=== PATIENT | female | born 1945 | race Caucasian/White ===

== ENCOUNTER → 2018-07-01 11:08 | Outpatient (CLI) | payer MEDICARE, OTHER, SELFPAY ==
--- NOTE | 2018-07-01 | DI.MG.S_ITS ---
BILATERAL DIGITAL SCREENING MAMMOGRAM 3D/2D WITH CAD: 07/01/2018 CLINICAL: Routine screening. Family history of breast cancer. Comparison is made to exams dated: 06/30/2017 mammogram, 06/25/2016 mammogram, and 06/22/2015 mammogram - [facility]. There are scattered fibroglandular elements in both breasts. Current study was also evaluated with a Computer Aided Detection (CAD) system. No significant masses, calcifications, or other findings are seen in either breast. There has been no significant interval change. IMPRESSION: NEGATIVE There is no mammographic evidence of malignancy. A 1 year screening mammogram is recommended. This exam was interpreted at Station ID: [id number]. NOTE: For mammograms, a report in lay terms will be sent to the patient. Approximately 15% of breast malignancies will not be visualized mammographically. In the management of a palpable breast mass, a negative mammogram must not discourage biopsy of a clinically suspicious lesion. Electronically Signed By: Jimbo pate/sonam:07/03/2018 02:52:55 letter sent: Normal Exam ACR BI-RADS Category 1: Negative 3341F
== END ==
PROVIDERS: Visit Provider Internal Medicine
DX: Z12.31 Encounter for screening mammogram for malignant neoplasm of breast (principal); Z80.3 Family history of malignant neoplasm of breast
CPT/HCPCS: 77063; 77067

== ENCOUNTER → 2019-07-02 10:56 | Outpatient (CLI) | payer MEDICARE, OTHER, SELFPAY ==
--- NOTE | 2019-07-02 | DI.MG.S_ITS ---
BILATERAL DIGITAL SCREENING MAMMOGRAM 3D/2D WITH CAD: 07/02/2019 CLINICAL: Routine screening. Family history of breast cancer. Comparison is made to exams dated: 07/01/2018 mammogram - [facility], 06/30/2017 mammogram, and 06/25/2016 mammogram - [facility]. There are scattered fibroglandular elements in both breasts. Current study was also evaluated with a Computer Aided Detection (CAD) system. No significant masses, calcifications, or other findings are seen in either breast. There has been no significant interval change. IMPRESSION: NEGATIVE There is no mammographic evidence of malignancy. A 1 year screening mammogram is recommended. This exam was interpreted at Station ID: [id number]. NOTE: For mammograms, a report in lay terms will be sent to the patient. Approximately 15% of breast malignancies will not be visualized mammographically. In the management of a palpable breast mass, a negative mammogram must not discourage biopsy of a clinically suspicious lesion. Electronically Signed By: Kim bradshaw/sonam:07/02/2019 15:05:17 letter sent: Normal Exam ACR BI-RADS Category 1: Negative 3341F
== END ==
PROVIDERS: PCP Internal Medicine; Visit Provider Internal Medicine
DX: Z12.31 Encounter for screening mammogram for malignant neoplasm of breast (principal); Z80.3 Family history of malignant neoplasm of breast
CPT/HCPCS: 77063; 77067

== ENCOUNTER → 2020-07-04 11:47 | Outpatient (CLI) | payer MEDICARE, OTHER, SELFPAY ==
--- NOTE | 2020-07-04 12:17 | DI.MG.S_ITS ---
Patient Name: MARJ ROSAS date: 1945 Sex: F Attending Physician: Claudio Indications: Date: 07/04/2020 12:11 At the request of: ANTHONY BLANCAS Procedure: MM screening mammo BI BILATERAL DIGITAL SCREENING MAMMOGRAM 3D/2D WITH CAD: 07/04/2020 CLINICAL: Routine screening. Family history of breast cancer. Comparison is made to exams dated: 07/02/2019 mammogram, 07/01/2018 mammogram - [facility], and 06/30/2017 mammogram - [facility]. There are scattered fibroglandular elements in both breasts. Current study was also evaluated with a Computer Aided Detection (CAD) system. No significant masses, calcifications, or other findings are seen in either breast. There has been no significant interval change. IMPRESSION: NEGATIVE There is no mammographic evidence of malignancy. A 1 year screening mammogram is recommended. This exam was interpreted at Station ID: [id number]. NOTE: For mammograms, a report in lay terms will be sent to the patient. Approximately 15% of breast malignancies will not be visualized mammographically. In the management of a palpable breast mass, a negative mammogram must not discourage biopsy of a clinically suspicious lesion. Electronically Signed By: Uriel vasquez/sonam:07/04/2020 17:57:44 letter sent: Normal Exam ACR BI-RADS Category 1: Negative 3341F
== END ==
PROVIDERS: PCP Internal Medicine; Referring Provider Internal Medicine; Visit Provider Internal Medicine
DX: Z12.31 Encounter for screening mammogram for malignant neoplasm of breast (principal); Z80.3 Family history of malignant neoplasm of breast
CPT/HCPCS: 77063; 77067

== ENCOUNTER → 2021-05-11 11:35 | Outpatient (CLI) | payer MEDICARE, OTHER, SELFPAY ==
--- NOTE | 2021-05-11 11:40 | DI.MRI.S_ITS ---
PROCEDURE: MR LUMBAR SPINE WO CON INDICATIONS: Spondylolisthesis L4-5 TECHNIQUE: Noncontrast sagittal T1 spin echo and T2 fast echo, sagittal STIR, axial T1 and T2 fast spin echo through the lumbar spine. In cases with scoliosis, additional coronal T2 fast spin echo may be performed. COMPARISON: [facility], RG, XR L-SPINE 2-3V, 04/12/2021, 9:21. FINDINGS: Image quality: Excellent. Alignment and Curvature: Grade 1 anterolisthesis of L4 on L5 as before. Bone Marrow: Multilevel degenerative endplate sclerosis and spurring. Diffuse facet arthropathy. No acute fracture identified. Sclerotic degenerative changes seen at the anterior superior L5 endplate. Spinal Cord: Conus medullaris terminates at the L1-L2 level. Visualized cord demonstrates normal signal and size. Paraspinous Soft Tissues: There is lobulated T2 hyperintense homogeneous signal changes involving the posterior aspect of the right psoas muscle and into the right pelvis, not completely and included on the exam [id number]. On sagittal pulse sequences measures 6.4 cm in the oblique cephalocaudal dimension, and on axial images this measures 2.2 x 1.4 cm on image 31/6. Presumed bilateral T2 hyperintense renal cysts although technically indeterminate. T12-L1: Normal appearance. L1-L2: Normal appearance. L2-L3: No canal narrowing. Lateral recesses appear grossly patent. No left foraminal stenosis. Mild right foraminal narrowing. L3-L4: No high-grade canal narrowing. Partial effacement of both lateral recesses with bilaterally symmetric appearance. No foraminal stenosis. L4-L5: Moderate canal narrowing. Near complete effacement of both lateral recesses with bilaterally symmetric appearance. Mild left foraminal stenosis. Mild to moderate right foraminal narrowing. L5-S1: No canal stenosis. Lateral recesses appear grossly patent. No right foraminal stenosis. Moderate left foraminal stenosis with slight nerve root compression in the cephalocaudal dimension seen on image 13/4. IMPRESSION: Moderate left foraminal stenosis at L5-S1 as above. Moderate L4-L5 canal narrowing. Grade 1 anterolisthesis of L4 on L5. Incidentally noted lobulated large T2 hyperintense signal changes involving the right posterior aspect of the psoas muscle extending into the right pelvis. Unclear if this represents large cystic lesion/s versus T2 hyperintense solid mass. This is not entirely included on the examination. Recommend further evaluation with dedicated contrast enhanced pelvis MRI. Dictated by: Jimmie Wolf M.D. on 05/14/2021 at 10:04 Approved by: Jimmie Wolf M.D. on 05/14/2021 at 10:17
== END ==
PROVIDERS: PCP Internal Medicine; Referring Provider Physical Medicine & Rehabilitation; Visit Provider Physical Medicine & Rehabilitation
DX: M43.16 Spondylolisthesis, lumbar region (principal); M48.061 Spinal stenosis, lumbar region without neurogenic claudication; M48.07 Spinal stenosis, lumbosacral region
CPT/HCPCS: 72148

== ENCOUNTER → 2021-05-16 15:28 | Outpatient (CLI) | payer MEDICARE, OTHER, SELFPAY ==
--- NOTE | 2021-05-16 15:32 | DI.MRI.S_ITS ---
PROCEDURE: MR PELIS WO/W CON INDICATIONS: PSAOS MASS FOLLOW UP FROM LUMBAR MRI TECHNIQUE: Noncontrast coronal T1 spin echo and STIR, sagittal T1 spin echo with fat saturation and STIR, axial T1 spin echo and T2 fast spin echo with fat saturation. After the administration of contrast, axial/sagittal/coronal T1 spin echo with fat saturation through the pelvis [facility], RG, XR L-SPINE 2-3V, 04/12/2021, 9:21. eenCOMPARISON: [facility], MR, MR LUMBAR SPINE WO CON, 05/11/2021, 11:52. FINDINGS: Image quality: Excellent. Bones: Patient is status post right total hip arthroplasty with significant susceptibility obscuring evaluation of right hip. Moderate to severe left hip joint osteoarthritic changes are seen with near complete loss of joint space, extensive subchondral sclerosis and edema and subchondral cyst formation. Prominent lateral and inferior marginal osteophyte formation is also seen. No evidence of avascular necrosis of femoral head. No suspicious intraosseous lesion. No abnormal intraosseous enhancement. Soft tissues: As seen on previous lumbar spine MRI, a elongated and lobulated fairly homogeneously T2 hyperintense and T1 hypointense signal structure involving posterior aspect of right psoas muscle extending to right pelvis and anterior aspect of right hip joint. Thin internal septation is seen. This structure measures up to 14 cm in craniocaudal dimension series 5, image 13, 4 cm in largest transverse dimension series 12, image 14, and 3.7 cm in largest AP dimension series 12, image 22. No gross contrast enhancement within this structure is seen. The scanned muscles demonstrate normal overall bulk and internal signal. No area of abnormal contrast enhancement is noted. IMPRESSION: 1. Finding most likely represent large ganglion cyst deep to the right psoas muscle extending along anterior aspect of right hemipelvis and right hip and possibly communicating with right hip joint measures up to 4 x 3.7 x 14 cm in largest transverse, AP and craniocaudal dimensions. No evidence of internal contrast enhancement. 2. No definite muscle involvement is seen. No evidence of abnormal intramuscular enhancement. 3. Prior right hip arthroplasty. Severe left hip joint osteoarthritis. No fracture or dislocation. No suspicious intraosseous lesion or abnormal intraosseous enhancement. Dictated by: Lukas Cobb M.D. on 05/16/2021 at 17:02 Approved by: Lukas Cobb M.D. on 05/16/2021 at 17:10
== END ==
PROVIDERS: PCP Internal Medicine; Referring Provider Physical Medicine & Rehabilitation; Visit Provider Physical Medicine & Rehabilitation
DX: M62.89 Other specified disorders of muscle (principal); M47.816 Spondylosis without myelopathy or radiculopathy, lumbar region; M16.12 Unilateral primary osteoarthritis, left hip; Z96.641 Presence of right artificial hip joint
CPT/HCPCS: 72197; A9579

== ENCOUNTER 2021-05-29 09:28 | Outpatient (CLI) | payer MEDICARE, OTHER, SELFPAY ==
[2021-05-29] VITALS (9 sets, daily range): BP systolic 92–133; BP diastolic 46–60; PULSE 71–76; RESP 12–25; TEMP 36.9; O2SAT 95–100
--- NOTE | 2021-05-29 09:33 | DI.RAD.S_ITS ---
PROCEDURE: PAIN L/S FACET INJ/BLK 1ST BLAYNE COMPARISON: None. INDICATIONS: SPONDYLOSIS FINDINGS: Access needles demonstrated at the bilateral L4-L5 and L5-S1 facet joints. IMPRESSION: Access needles at bilateral L4-L5 and L5-S1 facet joints. Dictated by: Zoe Reis MD, PhD on 06/04/2021 at 9:25 Approved by: Zoe Reis MD, PhD on 06/04/2021 at 9:26
[2021-05-29] MEDS: fentaNYL 100 MCG/2 ML INJ 50 MCG IV (11:05)
[2021-05-29] MEDS: MIDAZOLAM 5 MG/5 ML VIAL IV (11:05)
[2021-05-29] MEDS: BETAMETHASONE 30 MG/5 ML MDV 12 MG INJ (11:05)
[2021-05-29] MEDS: IOPAMIDOL 15 ML VIAL 3 ML INJ (11:11)
[2021-05-29] MEDS: LIDOCAINE 1% 20 ML 10 ML INJ (11:12)
[2021-05-29] MEDS: BUPIVACAINE 0.5% (PF) VIAL 2 ML INJ (11:13)
--- NOTE | 2021-05-29 11:19 | P.PCN_ITS ---
Date/Time/Diagnoses Date of procedure: 05/29/21 Time of procedure: 11:19 Pre-procedure diagnosis: 1. FACET ARTHROPATHY 2. AXIAL LBP 3. MULTILEVEL DDD Post-procedure diagnosis: same Procedure Notes Procedure: 1. FLUOROSCOPICALLY GUIDED CONTRAST CONTROLLED FACET JOINT INJECTIONS BILATERAL L4/5, L5/S1 Indications: Annabelle is referred by Dr. Snyder for treatment of Axial LBP Physician: Mykel Monzon Total Fluoroscopy time (seconds): 8 Total sedation minutes: 10 Complications: none Procedure in detail & Post-procedure care: FINDINGS Multilevel Facet Arthropathy with Clinically significant axial LBP DESCRIPTION OF PROCEDURE Fluoroscopically guided, contrast-controlled bilateral L4/5, L5/S1 facet joint injections. Following review of allergy and review of potential side effects and complications, including, but not necessarily limited to, infection, allergic reaction, local tissue breakdown, stroke, temporary or permanent nerve injury, paralysis, and possible , the patient indicated that the patient understood and agreed to proceed. An informed consent document was signed by the patient, witnessed by a nurse, and placed in the patient's chart. Additionally, other treatment options including medications, modalities, and physical therapy were reviewed with the patient. After review of previous anaesthesic history and IV conscious sedation the patient was deemed safe to proceed with today?s procedure with IV conscious sedation as ASA class II designation. Safety time-out was performed to confirm patient ID, procedure to be performed and site of procedure. IV sedation was accomplished with a combination of 4mg of Versed and 50mcg of Fentanyl was administered by the RN after DO order, titrated to patient comfort during the course of the procedure while the patient remained responsive to all verbal commands In the prone position, following sterile prep and drape of the lumbar region, the posterior aspect of the L4/5, L5/S1 facet joints were identified fluoroscopically. The skin was anesthetized via a 25-gauge 1.5inch needle with 1% lidocaine solution into the corresponding facet joints. At this point, a 22- gauge 3.5-inch spinal needle was atraumatically introduced and advanced under fluoroscopic guidance into the corresponding facet joints. Following negative aspiration, injections of approximately 0.2cc of Isovue 200 confirmed intera rticular placement without vascular uptake. The identical procedure was then performed at the L4/5, L5/S1 facet joints on the left. Radiological data, including multiple fluoroscopic views of the lumbosacral spine, reveal a spinal needle at the L4/5, L5/S1 facet joints bilaterally. Subsequent views show flow of contrast material both superiorly and inferiorly within the joint space without vascular or intrathecal uptake. At this point, a total of 0.5cc including a mixture of 0.25cc Marcaine and 0.25cc betamethasone was injected without complication into each of the corresponding facet joints. The patient tolerated the procedure well without signs or symptoms of complications prior to transfer to the recovery area continued monitoring without incident. The patient was then transferred to the recovery area where they were observed for an appropriate period of time after the injection. The patient reported a VAS score of 7 prior to the procedure and a post- procedure VAS of 0. POST OP INSTRUCTIONS The patient was provided a Pain Log to continue to record their response to the target-specific procedure prior to follow-up visit with their referring physician. Additionally, specific post-injection care instructions and a contact number to our office were provided if concerns arise regarding possible complications associated with the procedure are suspected.
== END 2021-05-29 11:43 | disposition home or self-care (01) ==
LOC: RAD 09:31
PROVIDERS: PCP Internal Medicine; Referring Provider Physical Medicine & Rehabilitation; Visit Provider Physical Medicine & Rehabilitation
DX: M47.816 Spondylosis without myelopathy or radiculopathy, lumbar region (principal); M47.817 Spondylosis without myelopathy or radiculopathy, lumbosacral region; M51.36 Other intervertebral disc degeneration, lumbar region; M51.37 Other intervertebral disc degeneration, lumbosacral region; M54.5 Low back pain
CPT/HCPCS: 64493; 64494; 99152; J0702; J2250; J3010

== ENCOUNTER → 2021-06-27 11:52 | Outpatient (CLI) | payer MEDICARE, OTHER, SELFPAY ==
[2021-06-27 16:01] LABS: COVID19 -Nasal RAPID Negative (Negative)
== END ==
PROVIDERS: PCP Internal Medicine; Visit Provider Physical Medicine & Rehabilitation
DX: Z20.822 Contact with and (suspected) exposure to COVID-19 (principal); M47.816 Spondylosis without myelopathy or radiculopathy, lumbar region; M43.16 Spondylolisthesis, lumbar region; M62.89 Other specified disorders of muscle
CPT/HCPCS: 87635; 99213; C9803

== ENCOUNTER 2021-06-28 12:20 | Outpatient (CLI) | payer MEDICARE, OTHER, SELFPAY ==
[2021-06-28] VITALS (8 sets, daily range): BP systolic 108–134; BP diastolic 55–62; PULSE 67–73; RESP 10–18; TEMP 36.6; O2SAT 98–100
--- NOTE | 2021-06-28 12:21 | DI.RAD.S_ITS ---
PROCEDURE: PAIN L/S FACET INJ/BLK 1ST BLAYNE COMPARISON: [facility], , PAIN L/S FACET INJ/BLK 1ST BLAYNE, 05/29/2021, 11:09. INDICATIONS: SPONDYLOSIS FINDINGS: Fluoroscopic spot filming was performed to verify placement of spinal needles on both sides at the L4, L5, and S1 levels, as labeled on the films. Appropriate location of the needle tips was confirmed by injection of iodinated contrast. IMPRESSION: Intraprocedural examination within normal limits. Dictated by: Wang Lopez M.D. on 06/28/2021 at 13:40 Approved by: Wang Lopez M.D. on 06/28/2021 at 13:43
[2021-06-28] MEDS: MIDAZOLAM 5 MG/5 ML VIAL IV (13:20)
[2021-06-28] MEDS: fentaNYL 100 MCG/2 ML INJ 50 MCG IV (13:20)
[2021-06-28] MEDS: LIDOCAINE 1% 20 ML 10 ML INJ (13:25)
[2021-06-28] MEDS: BUPIVACAINE 0.5% (PF) VIAL 5 ML INJ (13:25)
[2021-06-28] MEDS: IOPAMIDOL 15 ML VIAL 3 ML INJ (13:25)
--- NOTE | 2021-06-28 13:36 | P.PCN_ITS ---
Date/Time/Diagnoses Date of procedure: 06/28/21 Time of procedure: 13:36 Pre-procedure diagnosis: 1. FACET ARTHROPATHY Post-procedure diagnosis: same Procedure Notes Procedure: 1. BILATERAL- L4, L5 and S1 DIAGNOSTIC MB BLOCKS with LA Anesthetic Indications: Annabelle is referred by Dr. Snyder for treatment of Bilateral Axial LBP. Physician: Mykel Monzon Total Fluoroscopy time (seconds): 8 Total sedation minutes: 13 Complications: none Procedure in detail & Post-procedure care: DESCRIPTION OF PROCEDURE Fluoroscopically guided, contrast-controlled bilateral L4, L5 and S1 medial branch blocks with 0.5cc of 0.5% Marcaine. Following review of allergy and review of potential side effects and complications, including, but not necessarily limited to, infection, allergic reaction, local tissue breakdown, nerve injury, paralysis, stroke and possible , the patient indicated that the patient understood and agreed to proceed. An informed consent document was signed by the patient, witnessed by a nurse, and placed in the patient's chart. After review of previous anaesthesic history and IV conscious sedation the patient was deemed safe to proceed with today's procedure with IV conscious sedation as ASA class II designation. Safety time-out was performed to confirm patient ID, procedure to be performed and site of procedure. IV sedation was accomplished with a combination of 2mg of Versed and 50mcg of Fentanyl was administered by the RN after DO order, titrated to patient comfort during the course of the procedure while the patient remained responsive to all verbal commands In the prone position, following sterile prep and drape of the lumbar region, the right L4, L5 and S1 anatomical location of the medial branch of the dorsal ramus was identified fluoroscopically. Subsequently an anesthetic skin wheal using 1% lidocaine solution was initiated at each of the anatomical spots. Subsequently then a 22-gauge 3.5-inch spinal needle was atraumatically introduced and advanced under fluoroscopic guidance at each of the corresponding sites at the right L4, L5 and S1 MB. After negative aspiration, 0.2cc of Isovue 200 was injected, confirming placement without vascular or intrathecal uptake. Subsequently then 0.5cc of 0.5% Marcaine solution was injected at each of the corresponding sites at the right L4, L5 and S1 medial branch locations. The identical procedure was replicated on the left. The patient tolerated the procedure well without signs or symptoms of complications prior to transfer to the recovery area continued monitoring without incident. Post-procedure, the patient was monitored initiating provocative activities to measure the amount of relief from block of the facetogenic pain. The patient reported a VAS of 7 prior to the procedure and a post-procedure VAS of 1. It has been a pleasure to assist in the diagnostic and therapeutic care of your patient. POST OP INSTRUCTIONS The patient was provided with a Pain Log to complete over the next several hours and subsequent days prior to the patient's follow up with the ordering physician. 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 The patient is aware, was provided, once again, with a Pain Log and will follow up with the referring physician for review and clinical correlation
== END 2021-06-28 14:00 | disposition home or self-care (01) ==
LOC: RAD 12:21
PROVIDERS: PCP Internal Medicine; Referring Provider Physical Medicine & Rehabilitation; Visit Provider Physical Medicine & Rehabilitation
DX: M47.816 Spondylosis without myelopathy or radiculopathy, lumbar region (principal); M47.817 Spondylosis without myelopathy or radiculopathy, lumbosacral region
CPT/HCPCS: 64493; 64494; 99152; J2250; J3010

== ENCOUNTER → 2021-07-06 09:29 | Outpatient (CLI) | payer MEDICARE, OTHER, SELFPAY ==
--- NOTE | 2021-07-06 09:31 | DI.RAD.S_ITS ---
PROCEDURE: XR DEXA AXIAL SKELETON INDICATIONS: Routine screening COMPARISON: None. FINDINGS: This blank DEXA report has been sent in error by the PACS system. The correct and complete report will be forthcoming in 1-2 days. Thank you for your patience and understanding. Dictated by: Dilan Holder M.D. on 07/06/2021 at 10:58 Approved by: Dilan Holder M.D. on 07/06/2021 at 10:58
--- NOTE | 2021-07-06 09:31 | DI.MG.S_ITS ---
BILATERAL DIGITAL SCREENING MAMMOGRAM 3D/2D WITH CAD: 07/06/2021 CLINICAL: Routine screening. Family history of breast cancer. Comparison is made to exams dated: 07/04/2020 mammogram, 07/02/2019 mammogram, and 07/01/2018 mammogram - [facility]. There are scattered fibroglandular elements in both breasts. Current study was also evaluated with a Computer Aided Detection (CAD) system. No significant masses, calcifications, or other findings are seen in either breast. There has been no significant interval change. IMPRESSION: NEGATIVE There is no mammographic evidence of malignancy. A 1 year screening mammogram is recommended. This exam was interpreted at Station ID: [id number]. NOTE: For mammograms, a report in lay terms will be sent to the patient. Approximately 15% of breast malignancies will not be visualized mammographically. In the management of a palpable breast mass, a negative mammogram must not discourage biopsy of a clinically suspicious lesion. Electronically Signed By: John Valentin M.D., jr/sonam:07/06/2021 12:13:02 letter sent: Normal Exam ACR BI-RADS Category 1: Negative 3341F
== END ==
PROVIDERS: PCP Internal Medicine; Referring Provider Internal Medicine; Visit Provider Internal Medicine
DX: Z12.31 Encounter for screening mammogram for malignant neoplasm of breast (principal); Z78.0 Asymptomatic menopausal state
CPT/HCPCS: 77063; 77067; 77080; 77081

== ENCOUNTER → 2021-07-16 15:48 | Outpatient (CLI) | payer MEDICARE, OTHER, SELFPAY ==
[2021-07-16 17:05] LABS: COVID19 -Nasal RAPID Negative (Negative)
== END ==
PROVIDERS: PCP Internal Medicine; Visit Provider Physical Medicine & Rehabilitation
DX: Z20.822 Contact with and (suspected) exposure to COVID-19 (principal); M51.26 Other intervertebral disc displacement, lumbar region; M43.16 Spondylolisthesis, lumbar region; M47.816 Spondylosis without myelopathy or radiculopathy, lumbar region
CPT/HCPCS: 87635; 99213; C9803

== ENCOUNTER 2021-07-19 13:49 | Outpatient (CLI) | payer MEDICARE, OTHER, SELFPAY ==
[2021-07-19] VITALS (8 sets, daily range): BP systolic 109–123; BP diastolic 51–58; PULSE 77–79; RESP 7–20; TEMP 36.6; O2SAT 94–100
--- NOTE | 2021-07-19 13:51 | DI.RAD.S_ITS ---
PROCEDURE: PAIN L INTERLAMINAR/CAUDAL INJ INDICATIONS: SPONDYLOSIS COMPARISON: [facility], XA, PAIN L/S FACET INJ/BLK 1ST BLAYNE, 06/28/2021, 13:25. FINDINGS: Fluoroscopic spot filming was performed to verify placement of a spinal needle at the L4-L5 level, as labeled on the films. Appropriate location of the needle tip was confirmed by injection of iodinated contrast. IMPRESSION: Intraprocedural examination within normal limits. Dictated by: Wang Lopez M.D. on 07/19/2021 at 14:58 Approved by: Wang Lopez M.D. on 07/19/2021 at 14:58
[2021-07-19] MEDS: MIDAZOLAM 5 MG/5 ML VIAL IV (15:37)
--- NOTE | 2021-07-19 15:48 | P.PCN_ITS ---
Date/Time/Diagnoses Date of procedure: 07/19/21 Time of procedure: 15:48 Pre-procedure diagnosis: 1. HNP WITH RADICULAR FEATURES, 2. MULTILEVEL CENTRAL STENOSIS, Post-procedure diagnosis: same Procedure Notes Procedure: 1. FLUOROSCOPICALLY GUIDED CONTRAST CONTROLLED INTERLAMINAR EPIDURAL STEROID INJECTION -L4/5 Indications: Annabelle is referred by Dr. Snyder for treatment of Bilateral Foraminal Stenosis R>L LE symptoms. Physician: Mykel Monzon Total Fluoroscopy time (seconds): 5 Total sedation minutes: 6 Complications: none Procedure in detail & Post-procedure care: FINDINGS Multilevel Central Spinal Stenosis with Nerve Root Compression DESCRIPTION OF PROCEDURE Fluoroscopically guided, contrast-controlled L4/5 translaminar epidural steroid injection. Following review of allergy and review of potential side effects and complications, including, but not necessarily limited to, infection, allergic reaction, local tissue breakdown, temporary as well as permanent nerve injury, paralysis, stroke and possible , the patient indicated that the patient understood and agreed to proceed. An informed consent document was signed by the patient, witnessed by a nurse, and placed in the patient's chart. Additionally, other treatment options including modalities, medications, and physical therapy were reviewed with the patient. After review of previous anaesthesic history and IV conscious sedation the patient was deemed safe to proceed with today?s procedure with IV conscious sedation as ASA class II designation. Safety time-out was performed to confirm patient ID, procedure to be performed and site of procedure. IV sedation was accomplished with a combination of 2mg of Versed was administered by the RN after DO order, titrated to patient comfort during the course of the procedure while the patient remained responsive to all verbal commands In the prone position, following sterile prep and drape of the lumbar region, the L4/5 translaminar space was identified fluoroscopically. The skin was anesthetized via a 25-gauge, 1.5inch needle with 1% lidocaine solution. At this point, a 22-gauge short bevel spinal needle was atraumatically introduced and ad vanced under fluoroscopic guidance into the region of the L4/5 translaminar space. Depth was confirmed on lateral view. Radiological data, including multiple fluoroscopic views of the lumbar spine, reveal a spinal needle at the L4/5 translaminar space. Lateral views then show placement of the needle in the epidural space. Subsequent views show contrast material flowing superiorly and inferiorly in the epidural space. No vascular or intrathecal uptake is observed. At this point, using loss of resistance technique with saline and air, the epidural space was entered. This was confirmed following negative aspiration with injection of approximately 1.5cc of Isovue 200, showing excellent epidural flow without vascular or intrathecal uptake. At this point, 1cc of 1% lidocaine solution combined with 4cc or 20mg of dexamethasone and 12mg betamethasone was injected without incident. The patient tolerated the procedure well without signs or symptoms of complications prior to transfer to the recovery area continued monitoring without incident. The patient was then transferred to the recovery area where they were observed for an appropriate period of time after the injection. The patient reported a VAS score of 6 prior to the procedure and a post- procedure VAS of 0. POST OP INSTRUCTIONS The patient was provided a Pain Log to continue to record their response to the target-specific procedure prior to follow-up visit with their referring physician. Additionally, specific post-injection care instructions and a contact number to our office were provided if concerns arise regarding possible complications associated with the procedure are suspected.
[2021-07-19] MEDS: IOPAMIDOL 15 ML VIAL 3 ML INJ (15:51)
[2021-07-19] MEDS: BETAMETHASONE 30 MG/5 ML MDV 12 MG INJ (15:52)
[2021-07-19] MEDS: BUPIVACAINE 0.25% (PF) VIAL 2 ML INJ (15:52)
[2021-07-19] MEDS: DEXAMETHASONE 10 MG/ML VIAL 20 MG INJ (15:52)
== END 2021-07-19 16:05 | disposition home or self-care (01) ==
LOC: RAD 13:51
PROVIDERS: PCP Internal Medicine; Referring Provider Physical Medicine & Rehabilitation; Visit Provider Physical Medicine & Rehabilitation
DX: M51.16 Intervertebral disc disorders with radiculopathy, lumbar region (principal); M48.061 Spinal stenosis, lumbar region without neurogenic claudication
CPT/HCPCS: 62323; J0702; J1100; J2250

== ENCOUNTER → 2022-04-24 07:57 | Outpatient (CLI) | payer MEDICARE, OTHER, SELFPAY ==
--- NOTE | 2022-04-24 07:58 | DI.RAD.S_ITS ---
PROCEDURE: XR LUMBAR SPINE MIN 4V INDICATIONS: BACK PAIN TECHNIQUE: 5 views of the lumbar spine acquired, including flexion and extension views. COMPARISON: None. FINDINGS: Bones: 5 nonrib-bearing vertebrae are present. There is normal bony alignment. No vertebral body compression fractures. No suspicious bony lesions. Total right hip arthroplasty noted. Disc space narrowing and hypertrophic facet joints noted in the lower lumbar spine Soft tissues: Overlying bowel gas pattern is normal. No suspicious soft tissue calcifications. Oblique view shows no evidence of pars defect IMPRESSION: Multilevel degenerative disc disease and arthropathy in the lower lumbar spine Approved by: Stef Almeida M.D. on 04/24/2022 at 17:46
== END ==
PROVIDERS: PCP Internal Medicine; Referring Provider Physical Medicine & Rehabilitation; Visit Provider Physical Medicine & Rehabilitation
DX: M51.36 Other intervertebral disc degeneration, lumbar region (principal); M47.816 Spondylosis without myelopathy or radiculopathy, lumbar region; M51.26 Other intervertebral disc displacement, lumbar region; M43.16 Spondylolisthesis, lumbar region; M16.12 Unilateral primary osteoarthritis, left hip; Z96.641 Presence of right artificial hip joint
CPT/HCPCS: 72110; 99214

== ENCOUNTER → 2022-04-30 10:44 | Outpatient (CLI) | payer MEDICARE, OTHER, SELFPAY ==
[2022-04-30 12:27] LABS: COVID19 -Nasal RAPID Negative (Negative)
== END ==
PROVIDERS: PCP Internal Medicine; Visit Provider Physical Medicine & Rehabilitation
DX: Z20.822 Contact with and (suspected) exposure to COVID-19 (principal)
CPT/HCPCS: 87635; C9803

== ENCOUNTER 2022-05-02 07:21 | Outpatient (CLI) | payer MEDICARE, OTHER, SELFPAY ==
[2022-05-02] VITALS (12 sets, daily range): BP systolic 119–146; BP diastolic 57–87; PULSE 75–81; RESP 12–18; TEMP 36.2; O2SAT 96–100
--- NOTE | 2022-05-02 07:51 | DI.RAD.S_ITS ---
PROCEDURE: PAIN L/S MED/LAT N RFA BILAT INDICATIONS: SPONDYLOSIS COMPARISON: None. FINDINGS: Fluoroscopic spot filming was performed to verify placement of spinal needles at the bilateral L4, L5 and S1 pedicles level(s), as labeled on the films. Appropriate location(s) of the needle tip(s) was confirmed by injection of iodinated contrast. IMPRESSION: Access needles at the bilateral L4, L5 and S1 pedicles 4 bilateral medial branch rhizotomies Dictated by: Zoe Reis MD, PhD on 05/02/2022 at 11:52 Approved by: Zoe Reis MD, PhD on 05/02/2022 at 11:53
[2022-05-02] MEDS: BUPIVACAINE 0.5% (PF) VIAL 5 ML INJ (08:30)
[2022-05-02] MEDS: LIDOCAINE 1% (PF) 5 ML INJ (08:31)
[2022-05-02] MEDS: MIDAZOLAM 2 MG/2 ML VIAL 4 MG IV (08:43)
--- NOTE | 2022-05-02 09:03 | P.PCN_ITS ---
Date/Time/Diagnoses Date of procedure: 05/02/22 Time of procedure: 09:03 Pre-procedure diagnosis: 1. RECALCITRANT FACET ARTHROPATHY Post-procedure diagnosis: same Procedure Notes Procedure: 1. BILATERAL L4 AND L5 MEDIAL BRANCH RADIOFREQUENCY NEUROTOMY AND S1 DORSAL RAMUS BRANCH RADIOFREQUENCY NEUROTOMY Indications: Annabelle is referred by Dr. Snyder for treatment of facet arthropathy. Physician: Mykel Monzon Total Fluoroscopy time (seconds): 18 Total sedation minutes: 34 Complications: none Procedure in detail & Post-procedure care: DESCRIPTION OF PROCEDURE Bilateral L4 and L5 medial branch radiofrequency neurotomy and bilateral S1 dorsal ramus radiofrequency neurotomy under fluoroscopy with conscious sedation. The patient is well known to this clinic having undergone previous facet injections with good but temporary relief. The patient has experienced appropriate, concordant relief with previous facet and median branch blocks but the patient's pain has been recalcitrant to further conservative measures. Therefore, based upon the patient's relief and persistent symptoms, the patient is considered an appropriate candidate for facet rhizotomy. All of the patient's questions regarding the risks versus benefits of the procedure, including, but not limited to, bleeding, infection, temporary as well as lasting nerve injury, paralysis, stroke, and , as well treatment alternatives were answered to satisfaction. After obtaining informed consent, denial of pertinent drug allergies, as well as being made aware of the potential risks of bleeding, infection, spinal cord trauma, paralysis, temporary and permanent nerve damage, seizure, stroke, and possible , the patient was brought to the fluoroscopy suite and positioned prone on the fluoroscopy table. The lumbar region was prepped with Betadine and covered with a fenestrated drape in the usual sterile fashion. Appropriate monitors applied including pulse oximeter, pulse, and blood pressure for regular monitoring throughout the procedure. After review of previous anaesthesic history and IV conscious sedation the patient was deemed safe to proceed with today's procedure with IV conscious sedation as ASA class II designation. Safety time-out was performed to confirm patient ID, procedure to be performed and site of procedure. IV sedation was accomplished with a combination of 4mg of Versed administered by the RN after DO order, titrated to patient comfort during the course of the procedure while the patient remained responsive to all verbal commands. After local infiltration using 1% lidocaine, under fluoroscopic guidance, a 10- cm RF insulated needle with a 10-mm active tip was positioned parallel to the junction of the right sacral ala and the superior articulating process where the S1 dorsal ramus resides. Needle placement was confirmed with motor stimulation of .5v on the right which produced local stimulation without radicular component. The stimulation was then increased to 2v with, once again, only local multifidus stimulation without radicular component. The needle was then removed and the identical procedure was performed along the length of the right L5 medial branch with motor stimulation at .7v on the right. The identical procedure was once again performed along the length of the right L4 medial branch with motor stimulation of .5v on the right. The medial branches were then anesthetised with 0.5% Marcaine. This was then followed by two discreet lesions performed at 80 degrees Celsius for 90 seconds each. The identical procedure was repeated on the left. The patient tolerated the procedure well without signs or symptoms of complications prior to transfer to the recovery area continued monitoring without incident. The patient was then transferred to the recovery area where they were observed for an appropriate period of time after the injection. The patient reported a VAS score of 9 prior to the procedure and a post-procedure VAS of 0. POST OP INSTRUCTIONS The patient was provided a Pain Log to continue to record the patient's response to the target-specific procedure prior to the patient's follow-up visit with the referring physician. Additionally, specific post-injection care instructions and a contact number to our office were provided if concerns arise regarding possible complications associated with the procedure are suspected.
== END 2022-05-02 09:20 | disposition home or self-care (01) ==
LOC: RAD 07:22
PROVIDERS: PCP Internal Medicine; Referring Provider Physical Medicine & Rehabilitation; Visit Provider Physical Medicine & Rehabilitation
DX: M47.816 Spondylosis without myelopathy or radiculopathy, lumbar region (principal); M47.817 Spondylosis without myelopathy or radiculopathy, lumbosacral region
CPT/HCPCS: 64635; 64636; 99152; 99153; J2250

== ENCOUNTER → 2022-07-08 08:28 | Outpatient (CLI) | payer MEDICARE, OTHER, SELFPAY ==
--- NOTE | 2022-07-08 | DI.MG.S_ITS ---
BILATERAL DIGITAL SCREENING MAMMOGRAM 3D/2D WITH CAD: 07/08/2022 CLINICAL: Routine screening. Comparison is made to exams dated: 07/06/2021 mammogram, 07/04/2020 mammogram, and 07/02/2019 mammogram - [facility]. There are scattered areas of fibroglandular density in both breasts (category b / 25%-50% glandular tissue). Current study was also evaluated with a Computer Aided Detection (CAD) system. No significant masses, calcifications, or other findings are seen in either breast. There has been no significant interval change. IMPRESSION: NEGATIVE There is no mammographic evidence of malignancy. A 1 year screening mammogram is recommended. Based on the Tyrer Cuzick model (a risk assessment model) the patient's lifetime risk is 3.3% and her 10 year risk is 3.3%. According to the ACR, ACS, and NCCN guidelines, an annual breast MRI exam along with mammogram is recommended if the patient's lifetime risk is 20% or greater. This exam was interpreted at Station ID: [id number]. NOTE: For mammograms, a report in lay terms will be sent to the patient. Approximately 15% of breast malignancies will not be visualized mammographically. In the management of a palpable breast mass, a negative mammogram must not discourage biopsy of a clinically suspicious lesion. Electronically Signed By: John Valentin M.D., jr/sonam:07/08/2022 09:48:26 letter sent: Normal Exam ACR BI-RADS Category 1: Negative [id number]
== END ==
PROVIDERS: PCP Internal Medicine; Referring Provider Internal Medicine; Visit Provider Internal Medicine
DX: Z12.31 Encounter for screening mammogram for malignant neoplasm of breast (principal)
CPT/HCPCS: 77063; 77067

== ENCOUNTER → 2024-07-07 12:20 | Outpatient (CLI) | payer MEDICARE, SELFPAY ==
--- NOTE | 2024-07-07 12:21 | DI.ECHO.S_ITS ---
[facility]+ [facility] : : [address] : : [place] : : [id number] : : Phone: [phone] Echocardiogram Report + + :Name: MARJ ROSAS Study Date: 07/07/2024 Height: 61 in : :[facility] ReadingLocation: Weight: 108 lb : : Gender: Female BSA: 1.5 m2 : :: 1945 Age: 78 yrs BP: 132/74 mmHg: :Reason For Study: ABNORMAL EKG : :Ordering Physician: MAGALIS, : :ANTHONY Guzman Performed By: Wendy Cartagena : :Referring: ANTHONY BLANCAS : + + Interpretation Summary 1. The left ventricular contractility is normal estimate ejection fraction is greater than 55% with no segmental wall motion abnormalities. No LVH. Grade 1 diastolic dysfunction. 2. The right ventricular contractility is normal. 3. The left atrium is mildly dilated. The interatrial septum is aneurysmal. All other cardiac chambers are of normal size. 4. Trace to mild atrial insufficiency. 5. Trace to mild tricuspid regurgitation with estimated pulmonary systolic artery pressures of 26 mmHg. 6. No obvious intracardiac shunts. 7. No obvious defect masses nor thrombi. 8. Low right-sided filling pressures. Conclusion: Normal biventricular systolic function with mild valvular abnormalities. 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 Procedure: A two-dimensional transthoracic echocardiogram with color flow and Doppler was performed. The study quality was technically adequate. There is no prior echocardiogram noted for this patient. The patient was in sinus rhythm with heart rates between 75-85 bpm during the exam. Left Ventricle: The left ventricle is normal in size and wall thickness. The ejection fraction is estimated to be 55-60%. Right Ventricle: The right ventricle is normal in size and function. Atria: The left atrium is mildly dilated. Right atrial size is normal. The atrial septum is aneurysmal. There is no Doppler evidence for an interatrial shunt. Mitral Valve: The mitral valve is normal in structure and function. There is no mitral regurgitation noted. Aortic Valve: The aortic valve is trileaflet. The aortic valve opens well. There is no aortic valve stenosis. There is mild aortic regurgitation. Tricuspid Valve: The tricuspid valve is normal in structure and function. There is mild tricuspid regurgitation. The right ventricular systolic pressure is estimated to be at least 26 mmHg based on an estimated right atrial pressure of 3 mm Hg. Pulmonic Valve: The pulmonic valve leaflets are thin and pliable; valve motion is normal. There is no pulmonic valvular regurgitation. Great Vessels: The aortic root is normal size. The dimensions of the ascending aorta are normal. The IVC is of normal diameter and collapses greater than 50% with a sniff. This suggests a low right atrial pressure of 3 mm Hg. Pericardium/ Pleura There is no pericardial effusion. There is no pleural effusion. MMode/2D Measurements & Calculations LVIDd: 4.2 cm LVOT diam: 2.0 cm LVIDs: 3.0 cm Ao root diam: 2.7 cm FS: 28.8 % asc Aorta Diam: 3.3 cm IVSd: 1.0 cm Ao Arch Diam (Prox Trans): 2.2 cm LVPWd: 0.74 cm LV gallardo. diameter/BSA (cm/m^2): 2.9 LV sys. diameter/BSA (cm/m^2): 2.0 LA A2 area: 18.9 cm2 RA long axis: 4.8 cm LA A4 area: 17.8 cm2 RA area: 11.1 cm2 LA length (vol): 5.4 cm RA vol: 22.0 ml LA vol: 52.6 ml RA : 15.2 ml/m2 LA vol index: 36.2 ml/m2 IVC diam: 1.8 cm RVD1 (basal): 2.5 cm RVD2 (mid): 2.0 cm TAPSE: 2.0 cm Doppler Measurements & Calculations Ao V2 max: 120.2 cm/sec LVOT Max Chris: 104.4 cm/sec Ao V2 mean: 92.9 cm/sec LV V1 max P.4 mmHg Ao max P.8 mmHg LV V1 VTI: 21.2 cm Ao mean P.7 mmHg SPENCER(I,D): 2.7 cm2 Ao V2 VTI: 23.3 cm SPENCER(V,D): 2.6 cm2 sev ratio: 0.91 SPENCER indexed to BSA (cm^2/m^2): 1.9 MV E max chris: 68.5 cm/sec TR max chris: 237.3 cm/sec MV A max chris: 87.0 cm/sec TR max P.5 mmHg MV E/A: 0.79 PA V2 max: 98.9 cm/sec Med Peak E' Chris: 4.2 cm/sec PA V2 mean: 77.3 cm/sec E/E' med: 16.4 PA mean P.5 mmHg Lat Peak E' Chris: 5.1 cm/sec PA pr(Accel): 20.8 mmHg E/E' lat: 13.3 E/e' average: 14.9 MV dec time: 0.19 sec SV(LVOT): 64.1 ml Reading Physician:
== END ==
LOC: ECHO 12:21
PROVIDERS: PCP Internal Medicine; Referring Provider Internal Medicine; Visit Provider Internal Medicine
DX: R94.31 Abnormal electrocardiogram [ECG] [EKG] (principal); I08.2 Rheumatic disorders of both aortic and tricuspid valves
CPT/HCPCS: 93306